=== PATIENT | male | born 2000 | race Two or more races ===

== ENCOUNTER 2019-08-06 09:32 | Emergency (ER) | payer MEDICAID, OTHER ==
[~2019-08-06] VITALS: Ht 182.9 cm; Wt 100.2 kg
[~2019-08-06 09:32] MED LIST: ALBU6.7H9 INH; ALBU8.5H8 IH; ANUHCCR RC; CETI-90 PO; DEXM15CP PO; FLO110IN IH; HYDR-4383 PO; SELE180S4 TP; ibuprofen
[2019-08-06 09:35] VITALS: BP 130/76
[2019-08-06] MEDS ORDERED: TRIA15CR61 TP (09:51)
[2019-08-06] MEDS ORDERED: PERM60CR19 TOP (09:51)
== END 2019-08-06 10:06 | disposition home or self-care (01) ==
LOC: ER 09:32
DX: B86 Scabies (principal); L30.9 Dermatitis, unspecified; J45.909 Unspecified asthma, uncomplicated; Z79.899 Other long term (current) drug therapy
CPT/HCPCS: 99283

== ENCOUNTER 2020-05-17 21:31 | Emergency (ER) | payer OTHER ==
[~2020-05-17] VITALS: Ht 182.9 cm; Wt 95.5 kg
[2020-05-17] MEDS ORDERED: TETanus/Pertussis (Acell)/Diphther VAC/PF (Tdap-Adult) 0.5ml syringe IMVAC ONE (23:30)
[2020-05-17 23:53] VITALS: BP 151/87
== END 2020-05-17 23:57 | disposition home or self-care (01) ==
LOC: ER 21:32
DX: S61.011A Laceration without foreign body of right thumb without damage to nail, initial encounter (principal); J45.909 Unspecified asthma, uncomplicated; Z79.899 Other long term (current) drug therapy; W26.8XXA Contact with other sharp object(s), not elsewhere classified, initial encounter; Y93.89 Activity, other specified; Y92.89 Other specified places as the place of occurrence of the external cause; Y99.8 Other external cause status
CPT/HCPCS: 12001; 90471; 90715; 99283

== ENCOUNTER 2024-10-18 09:21 | Emergency (ER) | payer BC, OTHER ==
[~2024-10-18] VITALS: Ht 182.9 cm; Wt 103.2 kg
[~2024-10-18 09:21] MED LIST changes: +ALBU6.7H14 INH; -ALBU6.7H9 INH; +ALBU8.5H17 IH; -ALBU8.5H8 IH
[2024-10-18 10:16] VITALS: TEMP 97.3
--- NOTE | 2024-10-18 10:32 | Physician Documentation ---
History of Present Illness ~ Chief Complaint: Asthma Stated Complaint: ASTHMA Time Seen by MD: 09:51 Primary Medical Doctor[facility] Mode of Arrival: Ambulatory HPI 24-year-old male who presents with shortness of breath over the past week and a half. He states that during this time he has noticed has become harder to take deep breaths and he gets easily short of breath and starts wheezing. He states that he has a history of asthma but has not had any issues for the past 4-5 years. He was previously using an albuterol inhaler but has not used these during this time over the past four years. He states that he has been using his girlfriend's albuterol inhaler with some mild relief. He denies any fever, chills or any other associated symptoms. Medication Reconciliation Allergies: Coded Allergies: No Known Allergies (Unverified , 10/18/24) Scheduled Albuterol Sulfate (Proventil Hfa), 2 PUFFS INH Q4H Cetirizine HCl (Zyrtec), 1 TAB PO DAILY Dexmethylphenidate Hcl (Focalin Xr), 15 MG PO DAILY, (Reported) Fluticasone Propionate 110 MCG* (Flovent Hfa 110 MCG*), 2 PUFF IH DAILY Hydrocodone/Acetaminophen ([place] 5-325 Tablet), 1 TABLET PO HS Hydrocortisone 2.5% Cream* (Proctozone-Hc 2.5% Cream*), 1 APPLIC RC BID Selenium Sulfide ([place] Blue), 1 APPLIC TP DAILY Scheduled PRN Albuterol Sulfate (Proair Hfa), 2 PUFFS IH Q4H PRN for SOB or wheezing Miscellaneous Medications [ibuprofen], (Reported) Past Medical History Past Medical History: Asthma, Eczema Past Surgical History: no surgical history Alcohol Use: None Drug Use: none Lives with: Mother, Father Lives In: Home Occupation: student Review of Systems All Other Systems at this time: Reviewed and Negative Physical Exam Vital Signs: Temperature: 97.3, Source: Temporal, Heart Rate: 74, Respiratory Rate: 16, BP: 131/85, Pulse Oximetry: 95, Weight: 103.200 Oxygen Flow Rate: 0 Physical Exam I have reviewed the triage vitals. CONST: Well developed and well nourished. In no acute distress HENT: Head Atraumatic EYES: Pupils are equal, round and reactive to light. Normal conjunctiva NECK: Normal range of motion. Supple. CARDIO: Normal rate and regular rhythm. No murmurs, rubs, or gallops. S1, S2. PULM/CHEST: No respiratory distress. Mild sparse wheezing bilaterally. ABD: Soft and nontender. Nondistended. Bowel sounds normal. No guarding. : Exam deferred MSK: No edema. No deformity. NEURO: Alert and oriented to person, place and time. Moving all extremities SKIN: Warm and dry. PSYCH: Normal mood and affect. Good eye contact. Progress Results/Orders Results/Orders Orders - ANDREW RUSS MD * Rt Notification Q1H (10/18/24 09:51) Chest,Single View (10/18/24 10:27) Completed Orders - ANDREW RUSS MD Albuterol 2.5mg/3ml Nebule (Proventil 2. (10/18/24 09:55) Prednisone Tablet (Prednisone Tablet) (10/18/24 10:30) Chest,Single View (10/18/24 10:27) Electrocardiogram (10/18/24 ) Medications Received in ER Medications (Trade) Dose Ordered Sig/Luzma Route PRN Reason Start Time Stop Time Status Last Admin Dose Admin (Proventil 2.5 MG/3ML nebule) 2.5 mg ONCE ONCE NEB 10/18/24 09:55 10/18/24 09:56 DC 10/18/24 10:33 2.5 MG (predniSONE tablet) 60 mg ONCE ONCE PO 10/18/24 10:30 10/18/24 10:31 DC 10/18/24 11:06 60 MG Vital Signs 10/18/24 10/18/24 10/18/24 10/18/24 09:34 10:11 10:16 10:37 Temp 97.3 97.3 Pulse 66 74 71 Resp 18 16 16 16 B/P (MAP) 131/74 131/85 (100) Pulse Ox 98 95 97 O2 Delivery Room Air* O2 Flow Rate 0 0 FiO2 21 10/18/24 10:45 Pulse 70 Resp 16 Pulse Ox 95 O2 Delivery Room Air* O2 Flow Rate 0 FiO2 21 EKG/XRAY/CT/US/VASC/MRI EKG : Additional Comment EKG interpreted by EDMD Dehkordi shows normal sinus rhythm at a rate of 57, normal axis, no NM intervals. No ischemia. Chest X-Ray : Additional Comments CHEST RADIOGRAPH Indication: SOB Technique: Single frontal view of the chest was obtained Comparison: None FINDINGS: Lines and Tubes: None Lungs: No focal consolidation. Pleura: No effusion. No pneumothorax. Cardiomediastinal contours: Unremarkable Bones: No acute osseous abnormality. IMPRESSION: 1. No acute cardiopulmonary disease. Medical Decision Making Additional Infomation 24-year-old male presenting for acute onset shortness of breath likely secondary to some mild asthma exacerbation. He has history of asthma but has not had any issues and while but it is possible that the weather change may have provoked him once again. We did do a chest x-ray which was unremarkable. . Additionally an EKG was done which was normal. Patient was given a albuterol nebulizer breathing treatment and 60 mg of p.o. prednisone with good improvement of symptoms. On reassessment the patient's lungs are clear he is doing much better. His vitals are normal with no hypoxia. Patient will be discharged home with a prescription for prednisone for five days as well as albuterol inhaler. I advised the patient to monitor his symptoms for improvement and recurrence. He was advised to get a primary care physician and follow up in the next 1-2 weeks for management of his asthma. Also advised to return to the ED with any acutely worsening symptoms. Departure Disposition: 01 HOME / SELF CARE / HOMELESS Impression: Primary Impression: Acute asthma Condition: Improved Referrals: NO PRIMARY CARE PROVIDER (PCP) Prescriptions albuterol inhaler (Pro-Air Inhaler) 8.5 Gm Inhaler 2 PUFFS INH Q4HPRN PRN for wheezing for 30 Days, #18 GM Prov: ANDREW RUSS MD 10/18/24 Prednisone* (Prednisone*) 20 Mg Tablet 1 TAB PO Q12H for 5 Days, #10 TAB Prov: ANDREW RUSS MD 10/18/24 Signature Scribe Signature: 1 Attestation: 1 ANDREW RUSS MD Oct 18, 2024 10:32
[2024-10-18] MEDS: albuterol 2.5 MG/3 ML nebule NEB ONE (10:33)
[2024-10-18 10:37] VITALS: PULSE 71; RESP 16; O2SAT 97
[2024-10-18 10:45] VITALS: PULSE 70; RESP 16; O2SAT 95
--- NOTE | 2024-10-18 10:56 | ELECTROCARDIOGRAPH REPORT ---
[facility] Test Date: 2024-10-18 Test Time: 10:53:03 Pat Name: APRIL TOLEDO Department: [facility] Patient ID: [facility]-[id number] Room: Gender: M [employer]: : 2000 Requested By: ANDREW RUSS Order Number: [id number] Reading MD: Dr. Ronan Alejo Measurements Intervals [place] Rate: 57 P: 12 CA: 153 QRS: 90 QRSD: 89 T: 32 QT: 384 QTc: 374 Interpretive Statements Sinus bradycardia Borderline right axis deviation Baseline wander in lead(s) V6 Electronically Signed On 10-18-2024 18:18:[address] Ronan Alejo Please click the below link to view image of tracing.
[2024-10-18] MEDS: predniSONE 20 mg tablet PO ONE (11:06)
--- NOTE | 2024-10-18 11:11 | RADIOLOGY REPORT ---
CHEST RADIOGRAPH Indication: SOB Technique: Single frontal view of the chest was obtained Comparison: None FINDINGS: Lines and Tubes: None Lungs: No focal consolidation. Pleura: No effusion. No pneumothorax. Cardiomediastinal contours: Unremarkable Bones: No acute osseous abnormality. IMPRESSION: 1. No acute cardiopulmonary disease.
[2024-10-18] MEDS ORDERED: ALBU8HFA INH (11:46)
[2024-10-18] MEDS ORDERED: PRED20TA PO (11:46)
[2024-10-18 11:52] VITALS: BP 132/71; PULSE 72; RESP 16; O2SAT 99
== END 2024-10-18 11:51 | disposition home or self-care (01) ==
LOC: ER 09:22
DX: J45.909 Unspecified asthma, uncomplicated (principal)
CPT/HCPCS: 71045; 93005; 94640; 99283; J7512; 94760